=== PATIENT | male | born 1985 | race Caucasian/White ===

== ENCOUNTER 2016-06-07 05:09 | Emergency (ER) | payer BC ==
[~2016-06-07 05:09] MED LIST: ALAVERT10 MG PO; BENADRYL25 MG PO; PROAIR HFA8.5 GM IH
== END 2016-06-07 05:50 | disposition home or self-care (01) ==
LOC: CED 05:09
DX: J06.9 Acute upper respiratory infection, unspecified (principal); J30.2 Other seasonal allergic rhinitis; Z91.040 Latex allergy status; Z88.8 Allergy status to other drugs, medicaments and biological substances; Z79.899 Other long term (current) drug therapy
CPT/HCPCS: 94640; 99282; 99283